=== PATIENT | male | born 1980 ===

== ENCOUNTER 2018-01-26 12:43 | Inpatient (IN) | payer MEDICAID ==
--- NOTE | 2018-01-26 13:10 | C.PDOC ---
History Of Present Illness 37 year old male with PMHx of seizures presents to the ED complaining of syncopal episode today at [facility]. States he developed generalized seizure while he was at [facility]. Denies any trauma or falls. States he usually develops seizure s after he goes on drinking binges for a few days. Reports he has not taken his seizure medications in a few months. History Per: Patient History/Exam Limitations: no limitations Recent Seizure Activity Began: Just Before Arrival Number Of Seizures: One Length Of Seizures (Duration): Unknown Quality Of Seizure: Generalized Precipitating Factor(s): Recent Alcohol Ingestion Past Medical History Reviewed: Historical Data, Nursing Documentation, Vital Signs - Medical History PMH: Seizures Surgical History: No Surg Hx Family History: States: No Known Family Hx Review Of Systems Except As Marked, All Systems Reviewed And Found Negative. Constitutional: Negative for: Fever, Chills Cardiovascular: Negative for: Chest Pain, Palpitations Respiratory: Negative for: Shortness of Breath Gastrointestinal: Negative for: Nausea, Vomiting Genitourinary: Negative for: Incontinence Neurological: Positive for: Seizures. Negative for: Dizziness Physical Exam - Physical Exam Appears: Non-toxic, Other (tremors ) Skin: Warm, Dry, No Rash Head: Normacephalic Eye(s): bilateral: Normal Inspection Nose: Normal Oral Mucosa: Moist Tongue: Normal Appearing, No Bite Lips: Normal Appearing Teeth: Normal Dentition Gingiva: Normal Appearing Neck: Supple Chest: Symmetrical Cardiovascular: Rhythm Regular Respiratory: No Rales, No Rhonchi, No Wheezing Gastrointestinal/Abdominal: Soft, No Tenderness Neurological/Psych: Oriented x3, Normal Speech Gait: Steady ED Course And Treatment - Laboratory Results Result Diagrams: 01/26/18 13:59 Disposition - Disposition Disposition Time: 14:18 Condition: GUARDED - Clinical Impression Clinical Impression: Seizure - Scribe Statement The provider has reviewed the documentation as recorded by the Scribe Ladi Magallon All medical record entries made by the Scribe were at my direction and personally dictated by me. I have reviewed the chart and agree that the record accurately reflects my personal performance of the history, physical exam, medical decision making, and the department course for this patient. I have also personally directed, reviewed, and agree with the discharge instructions and disposition. Physician Patient Turnover Patient Signed Over To: Shelli Hadley Handoff Comments: pending labs and reevaluation
[2018-01-26 13:28] VITALS: BMI 26.6
[2018-01-26] MEDS ORDERED: Multivitamin (MVI) 10 ML, Thiamine 100 MG, Folic Acid 1 MG in Sodium Chloride 0.9% 1,00... IV ONE (13:35)
[2018-01-26] MEDS ORDERED: Sodium Chloride 0.9% 1,000 ML ONE (13:44)
[2018-01-26 14:04] LABS: BASO % 0.7 % (0.0-2.0); EOS % 0.1 % (0.0-4.0); HEMOGLOBIN 13.4 g/dL (12.0-18.0); LYMPH # 0.3 K/uL (1.0-4.3); LYMPH % 10.2 % (20.0-40.0); MEAN CELL VOLUME 103.8 fL (80.0-94.0); MEAN CORPUSCULAR HEMOGLOBIN 36.6 pg (27.0-31.0); MEAN CORPUSCULAR HGB CONC 35.2 g/dL (33.0-37.0); MEAN PLATELET VOLUME 9.5 fL (7.2-11.7); MONO # 0.3 K/uL (0.0-0.8); MONO % 10.1 % (0.0-10.0); NEUT # 2.1 K/uL (1.8-7.0); NEUT % 78.9 % (50.0-75.0); PLATELET COUNT 44 K/uL (130-400); RBC 3.66 Mil/uL (4.40-5.90); WHITE BLOOD COUNT 2.7 K/uL (4.8-10.8)
[2018-01-26 14:18] LABS: ALB/GLOB RATIO 0.7 (1.0-2.1); ALBUMIN 3.2 g/dL (3.5-5.0); ALT/SGPT 49 U/L (21-72); AST/SGOT 151 U/L (17-59); BLOOD UREA NITROGEN 8 mg/dL (9-20); CALCIUM 8.4 mg/dl (8.6-10.4); GFR NON-AFRICAN AMERICAN > 60
[2018-01-26 15:57] LABS: BARBITURATES, UR NEGATIVE (NEGATIVE); BENZODIAZEPINES, UR NEGATIVE (NEGATIVE); OPIATES, UR NEGATIVE (NEGATIVE); PHENCYCLIDINE, UR NEGATIVE (NEGATIVE)
[2018-01-26 16:06] LABS: SQUAMOUS EPITHIAL < 1 /hpf (0-5); URINE BACTERIA RARE (<OCC); URINE BILIRUBIN 1+ (NEGATIVE); URINE BLOOD 2+ (NEGATIVE); URINE CLARITY Clear (Clear); URINE COLOR Amber (YELLOW); URINE GLUCOSE (UA) 1+ mg/dL (Normal); URINE LEUKOCYTE ESTERASE NEG Leu/uL (Negative); URINE PROTEIN 2+ mg/dL (NEGATIVE)
--- NOTE | 2018-01-26 17:31 | PCM.BM ---
<Gina Gallego - Last Filed: 01/26/18 17:30> Treatment Plan Problems - Problems identified on initial assessmt Potential for alcohol withdrawal Date Initiated: 01/26/18 Time Initiated: 17:30 Assessment reference: NA Status: Active Treatment assets and liabiliti Patient Assests: ADL independent, negotiates basic needs, cognitively intact Patient Liabilities: substance abuse (Alcohol), medical problems (Seizure disorder) - Milieu Protocol Maintain good personal hygiene: daily Encourage regular showers, daily Remind patient to perform daily oral care, daily Assist patient to perform ADL's Conduct patient checks and document Observation sheet: Q15 minutes Maintain personal safety: every shift Educate patient to report safety concerns to staff, every shift Monitor environment for contraband/sharps Medication safety: Monitor for expected outcome, potential side effects: every shift, Assess barriers to learning: every shift, Assess readiness for medication education: every shift <Yesi Narvaez - Last Filed: 01/27/18 17:17> - Diagnosis (1) Alcohol withdrawal Status: Acute Interventions: 01/27/18 17:17 * Assess 7x/week regarding severity of withdrawal * Educate regarding risks, benefits, side effects and alternatives of medications * Use Motivational Interviewing for abstinence * Use CBT for relapse prevention * Medication management for withdrawal symptoms * Encourage medication assisted treatment * <Liz Silveira - Last Filed: 01/28/18 14:03> Family Contact Family involvement: Famliy/SO not involved - Goals for Treatment Patient goals for treatment: Complete detox and resume 12-step meeting attendance. Discharge/Continuing Care - Education Needs Education Needs: Patient Medication, Patient Diagnosis/Disease Process, Patient Coping Skills, Patient Anger Management skills, Patient Placement options, Patient Community resources - Discharge Discharge Criteria: No longer exhibiting s/s of withdrawal, Reduction of target symptoms Discharge to:: Home, With Family - Treatment Team Participation Patient/Family/SO Statement: 01/28/18 14:03 "I gotta go to my meetings..." Discussed with Family/SO: No Was Patient/Family/SO present at Treatment Team Meeting: Yes
[2018-01-26] MEDS: Multiple Vitamins Tab PO SCH (18:42)
[2018-01-26] MEDS: Magnesium Oxide 400 mg Tab UD PO SCH (18:57)
--- NOTE | 2018-01-27 10:20 | PCM.PSYCH ---
Initial Psychiatric Evaluation - Initial Psychiatric Evaluation Type of Admission: Voluntary Legal Status: Capacity Chief Complaint (in patient's own words): "Alcohol" History of Present Illness and Precipitating Events: The pt is seen, chart reviewed, case discussed He is a 37 y/o LM, single, no child, employed as a [employer], lives with brother and brother's bro-in-law. He was brought in s/p a alcohol withdrawal seizure in [place] in [place]. He lives in [place]. He says this is his 3rd seizure in 10 years. He drinks more than a liter of wine daily. 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 He had severe wdw sx and is put on ativan taper (liver is elevated) and keppra No previous detox. No rehab Psych hx: He reports depressive sxs and anxiety. No past treatment and no suicidality Medical hx: Denies Family psych hx: Brother also abused alcohol Current Medications: Active Medications Generic Name Dose Route Start Last Admin Trade Name Longq PRN Reason Stop Dose Admin Clonidine HCl 0.1 mg 01/26/18 16:32 Catapres PO Q4H PRN Symptoms of alcohol withdrawl Folic Acid 1 mg 01/26/18 16:45 01/26/18 18:40 Folic Acid PO 1 mg DAILY MAKAYLA Administration Hydroxyzine HCl 25 mg 01/26/18 16:34 Atarax PO Q6H PRN Anxiety Ibuprofen 400 mg 01/26/18 16:34 Motrin Tab PO Q6H PRN Pain, moderate (4-7) Levetiracetam 250 mg 01/26/18 18:00 01/26/18 18:55 Keppra PO 250 mg BID MAKAYLA Administration Lorazepam 2 mg 01/26/18 18:00 01/27/18 06:19 Ativan PO 01/31/18 17:59 2 mg Q4H MAKAYLA Administration Taper Lorazepam 1 mg 01/26/18 16:32 Ativan PO Q4H PRN Symptoms of alcohol withdrawl Magnesium Oxide 400 mg 01/26/18 18:00 01/26/18 18:57 Mag-Ox PO 400 mg BID MAKAYLA Administration Multivitamins 1 tab 01/26/18 16:45 01/26/18 18:42 Hexavitamin PO 1 tab DAILY MAKAYLA Administration Thiamine HCl 100 mg 01/26/18 16:45 01/26/18 18:45 Vitamin B1 Tab PO 100 mg DAILY MAKAYLA Administration Trazodone HCl 50 mg 01/26/18 22:00 01/26/18 21:32 Desyrel PO 50 mg HS MAKAYLA Administration Past Psychiatric History - Past Psychiatric History Previous Treatment History: None Pertinent Medical Hx (Current Medical&Sleep Prob, Allergies): Allergies Allergy/AdvReac Type Severity Reaction Status Date / Time No Known Allergies Allergy Verified 01/26/18 13:37 Unobtainable 01/26/18 Review of Systems - Psychiatric Psychiatric: Abnormal Sleep Pattern, Anhedonia, Anxiety, Change in Appetite, Depression, Difficulty Concentrating. absent: Hallucinations, Homicidal Ideation, Paranoia, Suicidal Ideation Mental Status Examination - Personal Presentation Personal Presentation: Looks stated age (unkempt) - Affect Affect: Blunted - Motor Activity Motor Activity: Calm - Reliability in Providing Information Reliability in Providing Information: Good - Speech Speech: Organized (slowed) - Mood Mood: Depressed, Anxious - Formal Thought Process Formal Thought Process: No Impairment - Cognitive Functions Orientation: Person, Place, Situation, Time Sensorium: Drowsy Attention/Concentration: Easily distracted Abstract Thinking: [place] Estimate of Intelligence: Average Judgement: Intact, as evidence by: Insight regarding need for hospitalization Memory: Recent intact, as evidence by: Ability to recall events of the day, Remote intact, as evidenced by: Abilit to recall sig. life events - Risk Risk: Seizure, Withdrawal, Diminished functioning - Strength & Assets Inventory Strength & Assets Inventory: Employment history, Cooperative - Limitations Limitations: Other DSM 5 DX - DSM 5 DSM 5 Diagnosis: Alcohol withdrawal Alcohol use d/o - severe Major depressive d/o - single, moderate - Recommended/Plan of Treatment Treatment Recommendations and Plan of Treatment: Start ativan taper Keppra for seizures remeron for depression As need medications All risks, benefits and alternatives of the meds discussed, and the pt agreed and understood. Attend groups and activities Individual therapy daily [place] and CBT Psychoeducation and support daily Encourage compliance with meds and after care Refer to outpatient program in [place] where he lives Teach healthy lifestyle methods, i.e. diet, exercise, meditation Smoking cessation and patch if needed 32 min Projected ELOS: 4 - 5 days Prognosis: good w treatment - Smoking Cessation Smoking Cessation Initiated: No Reason for not providing: non smoker
[2018-01-27] MEDS: Magnesium Oxide 400 mg Tab UD PO SCH ×2 (10:35→18:09)
[2018-01-27] MEDS: Multiple Vitamins Tab PO SCH (10:35)
[2018-01-28] MEDS: Magnesium Oxide 400 mg Tab UD PO SCH ×2 (10:17→17:37)
[2018-01-28] MEDS: Multiple Vitamins Tab PO SCH (10:17)
[2018-01-28 13:58] VITALS: RESP 18
--- NOTE | 2018-01-28 23:00 | PCM.PYCHPN ---
Psychiatric Progress Note - Psychiatric Progress Note Patient seen today, length of contact: 16 min Patient Chief Complaint: "Better" Problems Identified/Issues Discussed: The pt is seen, chart reviewed, case discussed with staff. Support and psychoeducation given, CBT and VT used briefly No new symptoms reported, improving slowly and needs more time No SEs from medications, risks discussed. After care discussed. Wants to leave in AM Risks discussed Medication Change: Yes Medical Record Reviewed: Yes Mental Status Examination - Cognitive Function Orientation: Person, Place, Situation, Time Memory: Impaired Attention: Poor Concentration: Poor Association: WNL Fund of Knowledge: WNL - Mood Mood: Depressed, Anxious - Affect Affect: Blunted - Speech Speech: Appropriate - Formal Thought Process Formal Thought Process: No Impairment - Suicidal Ideation Suicidal Ideation: No - Homicidal Ideation Homicidal Ideation: No Goal/Treatment Plan - Goal/Treatment Plan Need for Continued Stay: Discharge may exacerbated symptoms, Severe functional impairment Progress Toward Problem(s) and Goals/Treatment Plan: Ativan taper Keppra for seizures remeron for depression As need medications All risks, benefits and alternatives of the meds discussed, and the pt agreed and understood. Attend groups and activities Individual therapy daily [place] and CBT Psychoeducation and support daily Encourage compliance with meds and after care Refer to outpatient program in [place] where he lives Teach healthy lifestyle methods, i.e. diet, exercise, meditation Smoking cessation and patch if needed
--- NOTE | 2018-01-29 08:59 | PCM.PYCHDC ---
Mental Status Examination - Mental Status Examination Orientation: Person Discharge Summary - Discharge Note Consultations:: List each consultation separately and include: 1. Reason for request. 2. Findings. 3. Follow-up Summary of Hospital Course include:: 1. Description of specific treatment plan utilized for patients during their course of treatmen. 2. Summarize the time- course for resolution of acute symptoms and/or regressed behaviors. 3. Describe issues identified and worked on during hospitalization. 4. Describe medication utilized. 5. Describe medical problems identified and treated. 6. Reassessment of suicide risk Summary of Hospital Course: The pt is seen, chart reviewed, case discussed He is a 37 y/o LM, single, no child, employed as a [employer], lives with brother and brother's bro-in-law. He was brought in s/p a alcohol withdrawal seizure in [facility] in [place]. He lives in [place]. He says this is his 3rd seizure in 10 years. He drinks more than a liter of wine daily. 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 He had severe wdw sx and is put on ativan taper (liver is elevated) and keppra No previous detox. No rehab Psych hx: He reports depressive sxs and anxiety. No past treatment and no suicidality Medical hx: Denies Family psych hx: Brother also abused alcohol He left 1-2 days early b/c of "work" and risks, incl. seizures, withdrawal and relapse, discussed and he understood. 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 He will follow up with AA and PCP. Not interested in programs. - Diagnosis (1) Alcohol withdrawal Current Visit: Yes Status: Acute - Final Diagnosis (DSM 5) Condition upon Discharge: GUARDED Disposition: HOME/ ROUTINE Follow-up Treatment Plan: Ativan taper Keppra for seizures remeron for depression As need medications All risks, benefits and alternatives of the meds discussed, and the pt agreed and understood. Attend groups and activities Individual therapy daily [place] and CBT Psychoeducation and support daily Encourage compliance with meds and after care Refer to outpatient program in [place] where he lives Teach healthy lifestyle methods, i.e. diet, exercise, meditation Smoking cessation and patch if needed Prescriptions/Medication Reconciliation: Mirtazapine [Remeron] 15 mg PO HS #30 tab traZODone [Desyrel] 50 mg PO HS #30 tab
[2018-01-29] MEDS: Magnesium Oxide 400 mg Tab UD PO SCH (09:11)
[2018-01-29] MEDS: Multiple Vitamins Tab PO SCH (09:11)
[2018-01-29 09:47] VITALS: BP 103/64; PULSE 83; TEMP 98.8; O2SAT 97
== END 2018-01-29 11:00 | disposition home or self-care (01) | DRG 772 ==
LOC: C.ER 12:43 → C.7D 16:51
PROVIDERS: ADMIT Psychiatry & Neurology Psychiatry; ATTEND Psychiatry & Neurology Psychiatry
PROC: HZ2ZZZZ Detoxification Services for Substance Abuse Treatment (ICD-10-PCS; principal; 2018-01-26)
PROC: HZ46ZZZ Group Counseling for Substance Abuse Treatment, Psychoeducation (ICD-10-PCS; 2018-01-26)
PROC: HZ59ZZZ Individual Psychotherapy for Substance Abuse Treatment, Supportive (ICD-10-PCS; 2018-01-26)
PROC: GZ3ZZZZ Medication Management (ICD-10-PCS; 2018-01-26)
DX: F10.230 Alcohol dependence with withdrawal, uncomplicated (principal); F32.1 Major depressive disorder, single episode, moderate; G40.509 Epileptic seizures related to external causes, not intractable, without status epilepticus